=== PATIENT | female | born 1990 | race Caucasian/White ===

== ENCOUNTER 2021-07-28 20:37 | Outpatient (CLI) | payer OTHER ==
[~2021-07-28 20:37] MED LIST: CEFUROXIME500 MG PO; IBUPROFEN800 MG PO; NORCO 10-325 T1 EACH PO; ONDANSETRON ODT4 MG SL; PHENAZOPYRIDIN200 MG PO; ZYVOX600 MG PO
== END 2021-07-29 00:08 | disposition home or self-care (01) ==
LOC: GENOP 20:37
DX: O47.02 False labor before 37 completed weeks of gestation, second trimester (principal); Z3A.27 27 weeks gestation of pregnancy; O99.332 Smoking (tobacco) complicating pregnancy, second trimester; F17.200 Nicotine dependence, unspecified, uncomplicated; O34.219 Maternal care for unspecified type scar from previous cesarean delivery; O13.2 Gestational [pregnancy-induced] hypertension without significant proteinuria, second trimester; O36.8120 Decreased fetal movements, second trimester, not applicable or unspecified
CPT/HCPCS: 81001; 82731; 96360; G0463

== ENCOUNTER 2021-08-28 18:22 | Outpatient (CLI) | payer OTHER | END 2021-08-28 22:03 | disposition home or self-care (01) | LOC: GENOP 18:22 | DX: O47.03 False labor before 37 completed weeks of gestation, third trimester (principal); O24.419 Gestational diabetes mellitus in pregnancy, unspecified control; O99.213 Obesity complicating pregnancy, third trimester; E66.9 Obesity, unspecified; O16.3 Unspecified maternal hypertension, third trimester; O26.853 Spotting complicating pregnancy, third trimester; O99.333 Smoking (tobacco) complicating pregnancy, third trimester; F17.200 Nicotine dependence, unspecified, uncomplicated; Z3A.31 31 weeks gestation of pregnancy | CPT/HCPCS: 81001 ==